=== PATIENT | male | born 1990 | race Caucasian/White ===

== ENCOUNTER 2019-11-18 17:54 | Emergency (ER) | payer SELFPAY ==
[~2019-11-18] VITALS: Ht 176 cm; Wt 73.0 kg
--- NOTE | 2019-11-18 18:59 | ED Integumentary General ---
General Chief Complaint: Laceration Stated Complaint: L INDEX FINGER LAC Nursing Triage Note: PT AMBULATE TO TRIAGE WITH C/O LAC TO FINGER ON LEFT HAND. PT STATES HE WAS CUTTING AN ONION AND CUT HIS INDEX FINGER ON LEFT HAND. Source: patient Exam Limitations: no limitations History of Present Illness Date Seen by Provider: Nov 18, 2019 Time Seen by Provider: 18:59 Initial Comments 29 yo male patient presents for c/o a lacerations to the left index finger that occurred while he was cutting an onion. incident occurred just prior to arrival. he is here visiting his cousin and is flying to [place] tomorrow. his last tetanus show was approximately 6 months ago. Timing/Duration: just prior to arrival Location: hands (left index finger) Possible Cause: other (cutting an onion) Modifying Factors: worse with other (pain worse with palpation) Allergies and Home Medications Allergies Coded Allergies: No Known Drug Allergies (Unverified , 11/18/19) Patient Home Medication List Home Medication List Reviewed: Yes Review of Systems Review of Systems Constitutional: no symptoms reported Respiratory: no symptoms reported Cardiovascular: no symptoms reported Musculoskeletal: No joint pain, No joint swelling; other (pain to the tip of the finger at the lac site) Skin: see HPI Psychiatric/Neurological: Denies Numbness, Denies Paresthesia, Denies Tingling, Denies Weakness All Other Systems Reviewed Negative Unless Noted: Yes (Negative excepted noted.) Past Huxkclh-Iqbwlk-Xaumnv Hx Past Med/Social Hx: Reviewed Nursing Past Med/Soc Hx Patient Social History Alcohol Use: Denies Use Recreational Drug Use: No Smoking Status: Never a Smoker 2nd Hand Smoke Exposure: No Recent Foreign Travel: Yes Contact w/Someone Who Travel: Yes Recent Infectious Disease Expo: No Recent Hopitalizations: No Physical Abuse: No Sexual Abuse: No Mistreated: No Fear: No Immunizations Up To Date Tetanus Booster (TDap): Less than 5yrs Seasonal Allergies Seasonal Allergies: No Past Medical History Surgeries: Yes (LASIX EYE) Respiratory: No Cardiac: No Neurological: No Genitourinary: No Gastrointestinal: No Musculoskeletal: No Endocrine: No HEENT: No Cancer: No Psychosocial: No Blood Disorders: No Family Medical History Reviewed Nursing Family Hx No Pertinent Family Hx Physical Exam Vital Signs Vital Signs - First Documented 11/18/19 11/18/19 18:40 20:26 Temp 36.5 Pulse 91 Resp 17 B/P (MAP) 167/105 (125) Pulse Ox 100 O2 Delivery Room Air Capillary Refill : Less Than 3 Seconds General Appearance: WD/WN, no apparent distress Cardiovascular: normal peripheral pulses, no edema Extremities: normal range of motion, normal capillary refill, other (2 cm flap laceration to the distal left index finger involving the distal nail with TTP.) Neurologic/Psychiatric: no motor/sensory deficits, alert, normal mood/affect, o riented x 3 Skin: normal color, warm/dry, other (2 cm flap laceration to the distal left index finger involving the distal nail with TTP.) Skin Problem Location: upper extremities (distal left index finger) Skin Problem Character: other (2 cm flap laceration to the distal left index finger involving the distal nail with TTP.) Procedures/Interventions Wound Location: Upper Extremities (left index finger) Wound Length (cm): 2 Wound's Depth, Shape: superficial, flap Wound Explored: clean Betadine Prep?: Yes (scrubbed with chlorasept and sterile saline) Anesthesia: 1% Lidocaine (digital block with 1% lidocaine and 0.5%marcaine) Volume Anesthetic (ccs): 3 Suture: Vicryl Suture Size: 4-0 Number of Sutures: 3 Sterile Dressing Applied?: Yes Progress blood loss minimal. patient tolerated the procedure well. wound dressed with sterile 2x2 gauze and tube gauze. pt given an alumifoam finger splint to begin using tomorrow. Progress/Results/Core Measures Results/Orders My Orders Orders - MARKEL HOPE Bupivacaine 0.5% Injection (Sensorcaine (11/18/19 19:15) Lidocaine 2% Injection 20 Ml (Xylocaine (11/18/19 19:15) Lidocaine 1% Inj 20 Ml (Xylocaine 1% Inj (11/18/19 19:19) Medications Given in ED Current Medications Medications Dose Ordered Sig/Allyssa Route Start Time Stop Time Status Last Admin Dose Admin Bupivacaine HCl 30 ml ONCE ONCE INJ 11/18/19 19:15 11/18/19 19:16 DC 11/18/19 19:26 30 ML Lidocaine HCl 20 ml STK-MED ONCE .ROUTE 11/18/19 19:19 11/18/19 19:23 DC 11/18/19 19:27 20 ML Vital Signs/I&O 11/18/19 11/18/19 18:40 20:26 Temp 36.5 Pulse 91 92 Resp 17 18 B/P (MAP) 167/105 (125) 138/79 Pulse Ox 100 O2 Delivery Room Air Room Air Blood Pressure Mean: 125 Departure Communication (Admissions) patient seen, evaluated, and wound repair performed. pt dsch to home. Impression Primary Impression: Laceration of index finger with damage to nail Qualified Codes: S61.311A - Laceration without foreign body of left index finger with damage to nail, initial encounter Disposition: HOME, SELF-CARE Condition: Improved Departure-Patient Inst. Decision time for Depature: 19:11 Referrals: NO,LOCAL PHYSICIAN (PCP/Family) Primary Care Physician Patient Instructions: Laceration Repair With Stitches (DC) Add. Discharge Instructions: All discharge instructions reviewed with patient and/or family. Voiced understanding. Medications as instructed. Tylenol over the counter as directed for pain. Motrin over the counter as directed for pain. Elevate the left hand on pillows. Ice pack for 20 minute intervals as needed. Finger splint as instructed. Tomorrow morning you may remove the bandage and shower with antibacterial soap. Finger splint as needed to protect the finger while traveling. Follow-up with your family doctor for suture removal in 7-10 days. Go to the closest emergency department or urgent care for worsened symptoms, pain, redness, drainage, fever, or any other concerns.. MARKEL HOPE Nov 18, 2019 18:59
[2019-11-18] MEDS ORDERED: LIDOCAINE 2% 20 ML (XYLOCAINE) VIAL INJ ONE (19:15)
[2019-11-18] MEDS ORDERED: BUPIVACAINE 0.5% 30 ML (SENSORCAINE) VIAL INJ ONE (19:15)
[2019-11-18] MEDS ORDERED: LIDOCAINE 1% INJ 20 ML 20 ML VIAL ONE (19:19)
[2019-11-18 20:26] VITALS: BP 138/79
== END 2019-11-18 20:26 | disposition home or self-care (01) ==
LOC: ER 17:57
DX: S61.311A Laceration without foreign body of left index finger with damage to nail, initial encounter (principal); W26.8XXA Contact with other sharp object(s), not elsewhere classified, initial encounter
CPT/HCPCS: 12031